=== PATIENT | male | born 1990 | race Caucasian/White ===

== ENCOUNTER 2020-07-03 17:20 | Observation (INO) | payer BC ==
[2020-07-03] MEDS ORDERED: Famotidine 20 MG/2 ML SDV IVPUSH ONE (17:32)
[2020-07-03] MEDS ORDERED: Aspirin 81 MG Tab.Chew CHEW ONE (17:32)
[2020-07-03] MEDS ORDERED: Ticagrelor 90 MG Tab PO ONE (17:32)
--- NOTE | 2020-07-03 17:32 | EDM.PDOC ---
ED HPI GENERAL MEDICAL PROBLEM - General Chief Complaint: Cardiovascular Problem Stated Complaint: A-fib Time Seen by Provider: 07/03/20 17:25 Source of Information: Reports: Patient, Old Records ([facility] EMR. No paper hospital chart available.), Other (Friend, [facility]. [place] EMR) History Limitations: Reports: No Limitations - History of Present Illness INITIAL COMMENTS - FREE TEXT/NARRATIVE: The patient was brought to the emergency room via private automobile by his friend for evaluation of heart flutter, which started when he woke up this morning at about 5 AM. He was able to go to work today and decided to follow-up at the [facility] in [place] for evaluation with no medications or treatment given in that facility. I did talk with his provider, CHRISTIANE Smith, by telephone prior to the patient being transferred to this facility. The patient denies any chest pain/pressure,dizziness, orthostasis, orthopnea, diaphoresis, paresthesias, recent decreased exercise tolerance, or any other anginal-type symptoms. No recent history of abdominal pain, heartburn, nausea, diarrhea, melena, gross hematochezia, or any food intolerance, including fatty foods, etc.. He denies any gross hematuria, colic, or other UTI symptoms. The patient also denies any recent fever, cough, wheezing, dyspnea, etc.. He denies any Hood pain or discomfort. Onset: Today, Sudden Onset Date: 07/03/20 Onset Time: 05:00 Duration: Constant, Getting Worse Location: Reports: Other (No pain) Severity: Moderate Improves with: Reports: None Worsens with: Reports: None Context: Reports: Other (As above). Denies: Sick Contact, Trauma Associated Symptoms: Denies: Confusion, Chest Pain, Cough, Diaphoresis, Fever/Chills, Headaches, Loss of Appetite, Malaise, Nausea/Vomiting, Rash, Seizure, Shortness of Breath, Syncope, Weakness Treatments NURSE SANE: Reports: Other (see below) (None) - Related Data Allergies Allergy/AdvReac Type Severity Reaction Status Date / Time No Known Allergies Allergy Verified 07/03/20 17:24 Home Meds: Home Meds Albuterol [Ventolin HFA] 2 puff INH Q4H PRN 07/03/20 [History] Fluticasone Propionate [Flonase] 1 spray NASBOTH DAILY 07/03/20 [History] Loratadine [Claritin] 10 mg PO DAILY 07/03/20 [History] Metoprolol Succinate [Toprol XL] 25 mg PO DAILY 07/03/20 [History] Multivitamin [Multi-Vitamin Daily] 1 each PO DAILY 07/03/20 [History] Omeprazole Magnesium [Prilosec Otc] 40 mg PO DAILY 07/03/20 [History] Past Medical History HEENT History: Reports: Allergic Rhinitis, Hard of Hearing, Impaired Vision. Denies: Cataract, Glaucoma, Macular Degeneration, Otitis Media, Retinal Detachment Other HEENT History: Patient does wear glasses. 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 Cardiovascular History: Reports: Arrhythmia, Other (See Below). Denies: Aneurysm, Blood Clots/VTE/DVT, CAD, Heart Murmur, High Cholesterol, Hypertension, UT, PVD, Syncope Other Cardiovascular History: Sinus tachycardia controlled with low-dose beta- golden therapy in the past. He does not know his cholesterol status. Respiratory History: Reports: Asthma. Denies: Bronchitis, Recurrent, COPD, Intubation, Previous, PE, Pneumonia, Recurrent, Pneumothorax, Sleep Apnea, SOB Gastrointestinal History: Reports: None, GERD. Denies: Bowel Obstruction, Celiac Disease, Cholelithiasis, Chronic Constipation, Chronic Diarrhea, Fecal Incontinence, Gastritis, GI Bleed, Inflammatory Bowel Disease, Irritable Bowel S yndrome, Jaundice, PUD Genitourinary History: Reports: None. Denies: Acute Renal Failure, BPH, Chronic Renal Insuffiency, Prostate Disorder, Renal Calculus, Retention, Urinary, STD, Urinary Incontinence, UTI, Recurrent Musculoskeletal History: Reports: Arthritis, Back Pain, Chronic, Neck Pain, Chronic. Denies: Amputation, Fracture, Gout, RA, SLE Neurological History: Reports: None. Denies: Cerebral Aneurysms, Concussion, CVA, Headaches, Chronic, Head Trauma, Migraines, MS, Neuropathy, Peripheral, Parkinson's, Seizure, TIA, Vertigo Psychiatric History: Reports: None. Denies: Abuse, Victim of, ADD, ADHD, Addiction, Anxiety, Depression, Psych Hospitalization(s), PTSD, Suicide Attempt, Suicidal Ideation Endocrine/Metabolic History: Reports: None, Obesity/BMI 30+. Denies: Diabetes, Type I, Diabetes, Type II, Diabetes Mellitus, Type 3c, Hypothyroidism, IDDM Hematologic History: Reports: None. Denies: Anemia, Blood Transfusion(s), Iron Deficiency Immunologic History: Reports: None. Denies: AIDS, HIV, SLE Oncologic (Cancer) History: Denies: Colon, Hodgkin's Lymphoma, Leukemia, Lymphoma, Malignant Melanoma, Non-Hodgkin's Lymphoma, Prostate, Squamous Cell Carcinoma Dermatologic History: Reports: Other (See Below). Denies: Eczema, Psoriasis Other Dermatologic History: Dry skin - Infectious Disease History Infectious Disease History: Reports: None, Other (See Below). Denies: C- Difficile, Chicken Pox, Measles, Meningitis, Mononucleosis, MRSA, Mumps, Novel Coronavirus, Pertussis (Whooping Cough), Rheumatic Fever, Rubella, Scarlet Fever, Shingles, TB, VRE Other Infectious Disease History: Patient is uncertain about his childhood illnesses. - Past Surgical History Head Surgeries/Procedures: Reports: None HEENT Surgical History: Reports: Oral Surgery, Other (See Below). Denies: Adenoidectomy, Cataract Surgery, Detached Retina, Eye Surgery, Laser Surgery, LASIK, Myringotomy w Tube(s), Naso-Sinus Surgery, Tonsillectomy Other HEENT Surgeries/Procedures: [place] teeth extraction x2 lowers at about age 14. Additional teeth extractions. Cardiovascular Surgical History: Reports: None. Denies: Varicose Respiratory Surgical History: Reports: None. Denies: Thoracentesis GI Surgical History: Reports: None. Denies: Appendectomy, Cholecystectomy, Colonoscopy, EGD, Hernia, Abdominal, Hernia, Inguinal, Hernia Repair/Other Male Surgical History: Reports: Circumcision, Vasectomy, Other (See Below) Other Male Surgeries/Procedures: Circumcision as an . Vasectomy on 11/15/2018. Endocrine Surgical History: Reports: None. Denies: Thyroid Biopsy Neurological Surgical History: Reports: None. Denies: C-Spine, Discectomy, Laminectomy, Lumbar Spine, Sacral Spine, Spinal Fusion, Thoracic Spine, Vertebroplasty Musculoskeletal Surgical History: Denies: Arthroscopic Procedure, Carpal Tunnel, Ganglion Cyst, Joint Replacement, ORIF, Shoulder Surgery Oncologic Surgical History: Reports: None Dermatological Surgical History: Reports: None - Past Imaging History Past Imaging History: Reports: None Social & Family History - Family History HEENT: Reports: None. Denies: Glaucoma, Macular Degeneration, Retinal Detachment Cardiac: Reports: Bypass, CAD, Heart Murmur, Hypertension, UT, Other (See Below). Denies: Afib, Aneurysm, Arrhythmia, Blood Clots/VTE/DVT, High Cholesterol, PVD/COD, Syncope Other Cardiac Family History: Maternal grandfather with fatal UT at age 42. Maternal grandmother with history of CABG with no UT in her 70s. Mother with unknown type of cardiac murmur. Hypertension in maternal grandmother. Respiratory: Reports: None. Denies: Asthma, COPD, PE, Pneumothorax, Sleep Apnea GI: Reports: None. Denies: Celiac Disease, Cholelithiasis, Colon Polyps, GERD, Inflammatory Bowel Disease, Irritable Bowel Syndrome, PUD : Reports: None. Denies: Renal Calculus, Renal Disease/Insufficiency OBGYN: Reports: None. Denies: Endometriosis, Recurrent Spontaneous Musculoskeletal: Reports: Arthritis, Osteoarthritis, Other (See Below). Denies: Gout, RA, SLE Other Musculoskeletal Family History: Mother with osteoarthritis. Neurological: Reports: None. Denies: Alzheimers Disease, Cerebral Aneurysms, CVA, Dementia, Migraines, MS, Seizure, TIA Psychiatric: Reports: Anxiety, Depression, Other (See Below). Denies: Abuse, Victim of, ADD, ADHD, Psych Hospitalization(s), PTSD, Suicide Attempt Other Psychiatric Family History: Mother with anxiety depression disorder. Endocrine/Metabolic: Reports: Diabetes, type II, Hypothyroidism, IDDM, Other (See Below). Denies: Diabetes, Gestational, Diabetes, Type I, Diabetes Mellitus, Type 3c Other Endocrine/Metabolic Family History: Maternal grandmother with IDDM. Maternal aunt with prediabetes. Mother with hypothyroidism. Obesity in mother and maternal aunt. Hematologic: Reports: None. Denies: Anemia, SLE Immunologic: Reports: None. Denies: AIDS, HIV, SLE Dermatologic: Reports: None. Denies: Eczema, Psoriasis Oncologic: Reports: Lung (Maternal grandmother with), Metastatic ( Maternal grandmother with fatal metastatic lung cancer in her 70s with previous history of tobacco use.). Denies: Cervix, Colon, Hodgkin's Lymphoma, Leukemia, Lymphoma, Non-Hodgkin's Lymphoma, Prostate, Skin - Tobacco Use Tobacco Use Status *Q: Current Every Day Tobacco User Tobacco Use Within Last Twelve Months: Cigarettes Years of Tobacco use: 13 Packs/Tins Daily: 0.5 Used Tobacco, but Quit: No Smoking Cessation Information Provided To Patient: Yes Second Hand Smoke Exposure: No Second Hand Smoke Education Provided: No - Caffeine Use Caffeine Use: Reports: Coffee (2 cups/day), Soda (1 soda per day). Denies: Energy Drinks, Tea - Alcohol Use Alcohol Use History: Yes Days Per Week of Alcohol Use: 7 Number of Drinks Per Day: 2 Number of Drinks Per Day Comment: Usually beer. No previous DWIs, problems with alcohol abuse, etc. Total Drinks Per Week: 14 Date of Last Drink: 07/01/20 Alcohol Use in Last Twelve Months: Yes - Recreational Drug Use Recreational Drug Use: No Drug Use in Last 12 Months: No Recreational Drug Type: Denies: Amphetamines (Speed), Cocaine, Heroin, Inhalants (Glues, Solvents, Aerosols), LSD (Acid), Marijuana/Hashish, Mescaline, Methamphetamine, Morphine, Oxycodone - Living Situation & Occupation Living situation: Reports: Single (No children), Alone Occupation: Employed ([employer]) ED ROS GENERAL - Review of Systems Review Of Systems: Comprehensive ROS is negative, except as noted in HPI. ED EXAM, GENERAL - Physical Exam Exam: See Below Exam Limited By: No Limitations General Appearance: Alert, WD/WN, No Apparent Distress Eye Exam: Bilateral Eye: EOMI, Normal Inspection (Patient is wearing glasses. No vertigo or nystagmus.), PERRL Ears: Normal External Exam, Normal Canal, Normal TMs, Other (Moderate bilateral hearing loss) Nose: Normal Inspection, Normal Mucosa, No Blood Throat/Mouth: Normal Inspection, Normal Lips, Normal Teeth, Normal Gums, Normal Oropharynx, Normal Voice, No Airway Compromise. No: Dysphagia, Inflammation, Perioral Cyanosis Head: Atraumatic, Normocephalic. No: Facial Swelling, Facial Tenderness, Sinus Tenderness Neck: Normal Inspection, Supple, Non-Tender, Full Range of Motion. No: Carotid Bruit, Lymphadenopathy (L), Lymphadenopathy (R), Thyromegaly Respiratory/Chest: No Respiratory Distress, Lungs Clear, Normal Breath Sounds, No Accessory Muscle Use, Chest Non-Tender. No: Pleural Rub, Retractions Cardiovascular: Normal Peripheral Pulses, No Edema, No Gallop, No JVD, No Murmur, No Rub, Tachycardia, Irregularly Irregular. No: Gallop/S3, Gallop/S4, Friction Rub Peripheral Pulses: 2+: Radial (L), Radial (R), Dorsalis Pedis (L), Dorsalis Pedis (R) GI/Abdominal: Normal Bowel Sounds, Soft, Non-Tender, No Organomegaly, No Distention, No Abnormal Bruit, No Mass, Pelvis Stable, Other (Obese). No: Guarding (Male) Exam: Deferred Rectal (Males) Exam: Deferred Back Exam: Normal Inspection, Full Range of Motion. No: CVA Tenderness (L), CVA Tenderness (R), Muscle Spasm Extremities: Normal Inspection, Normal Range of Motion, Non-Tender, Normal Capillary Refill, No Pedal Edema Neurological: Alert, Oriented, CN II-XII Intact, Normal Cognition, Normal Gait, Normal Reflexes (Negative Homans), No Motor/Sensory Deficits, Other (No clinical orthostasis) Psychiatric: Normal Affect, Normal Mood Skin Exam: Warm, Dry, Intact, Normal Color, No Rash. No: Diaphoretic, Ecchymosis, Petechiae, Wound/Incision Lymphatic: No Adenopathy #1 Interpretation EKG Date: 07/03/20 Time: 17:47 Rhythm: A-Flutter (And atrial fibrillation) Rate (Beats/Min): 92 [place]: Normal (Left) P-Wave: Variable QRS: Normal (0.08 seconds) ST-T: Normal QT: Normal [place]/PQ Interval: Poor R wave progression in the anterior leads. Comparison: Change From Previous EKG (Resolved tachycardia from previous EKG at [facility] earlier this afternoon at 5:20 PM.) EKG Interpretation Comments: 1. Atrial fibrillation/flutter with recent rapid ventricular response 2. No acute ischemic changes Course - Vital Signs Last Recorded V/S: Last Vital Signs Temp 36.6 C 07/03/20 17:20 Pulse 87 07/03/20 18:50 Resp 24 H 07/03/20 18:50 BP 122/85 07/03/20 18:50 Pulse Ox 98 07/03/20 18:50 Vital Signs - 24 hr 07/03/20 07/03/20 07/03/20 17:20 17:35 17:50 Temperature [ 36.6 C Temporal] Pulse, Peripheral Pulse, 120 H 120 H 97 Peripheral [ Apical] Respiratory 22 H 23 H 25 H Rate Blood Pressure Blood Pressure 131/75 120/79 119/100 H [Right Upper Arm] O2 Sat by Pulse 97 98 98 Oximetry 07/03/20 07/03/20 07/03/20 17:55 18:05 18:20 Temperature [ Temporal] Pulse, 97 Peripheral Pulse, 96 95 Peripheral [ Apical] Respiratory 19 23 H Rate Blood Pressure 119/100 H Blood Pressure 116/71 124/67 [Right Upper Arm] O2 Sat by Pulse 96 97 Oximetry 07/03/20 18:35 Temperature [ Temporal] Pulse, Peripheral Pulse, 85 Peripheral [ Apical] Respiratory 22 H Rate Blood Pressure Blood Pressure 125/71 [Right Upper Arm] O2 Sat by Pulse 98 Oximetry - Orders/Labs/Meds Orders: Active Orders 24 hr Category Date Time Status Cardiac Monitoring [RC] . DIRECTED Care 07/03/20 17:33 Active EKG Documentation Completion [RC] ASDIRECTED Care 07/03/20 17:33 Active Oxygen Therapy, ED [RC] PRN Care 07/03/20 17:33 Active Peripheral IV Care [RC] . DIRECTED Care 07/03/20 17:33 Active Pulse Oximetry [RC] CONTINUOUS Care 07/03/20 17:33 Active Up With Assistance [RC] PFP Care 07/03/20 17:33 Active Vital Signs [RC] PFP Care 07/03/20 17:33 Active Nothing per Oral Now Diet [DIET] Diet 07/03/20 Breakfast Active Chest 1V Frontal [CR] Stat Exams 07/03/20 17:33 Taken CORONAVIRUS COVID-19 GARRET [MOLEC] Stat Lab 07/03/20 18:10 Received CORONAVIRUS COVID-19 GARRET [MOLEC] Stat Lab 07/03/20 18:10 Received CORONAVIRUS COVID-19 GARRET [MOLEC] Stat Lab 07/03/20 18:10 Stop Req Sodium Chloride 0.9% [Saline Flush] Med 07/03/20 17:32 Active 10 ml FLUSH ASDIRECTED PRN Obtain Past Medical Record [OM.PC] Urgent Oth 07/03/20 17:33 Active Peripheral IV Insertion Adult [OM.PC] Stat Oth 07/03/20 17:33 Ordered Resuscitation Status Stat Resus Stat 07/03/20 17:32 Ordered Medication Orders Sodium Chloride (Saline Flush) 10 ml FLUSH ASDIRECTED PRN PRN Reason: Keep Vein Open Labs: Laboratory Tests 07/03/20 07/03/20 07/03/20 Range/Units 17:30 17:30 17:30 WBC 12.2 H (4.0-10.2) K/uL RBC 5.58 H (4.33-5.41) M/uL Hgb 16.3 (13.1-16.8) g/dL Hct 48.8 (39.0-49.0) % MCV 87.5 (84.0-98.0) fL MCH 29.2 (28.2-33.3) pg MCHC 33.4 (31.7-36.0) g/dL RDW 13.5 (11.2-14.1) % Plt Count 286 (150-350) K/uL Neut % (Auto) 53.3 (45.0-80.0) % Lymph % (Auto) 32.3 (10.0-50.0) % [place] % (Auto) 8.7 (2.0-14.0) % Eos % (Auto) 5.3 H (0.0-5.0) % Baso % (Auto) 0.4 (0.0-2.0) % Neut # (Auto) 6.48 (1.40-7.00) K/uL Lymph # (Auto) 3.94 H (0.50-3.50) K/uL [place] # (Auto) 1.06 H (0.00-1.00) K/uL Eos # (Auto) 0.65 H (0.00-0.50) K/uL Baso # (Auto) 0.05 (0.00-0.20) K/uL PT 9.4 L (9.5-12.0) SEC INR 0.9 APTT 26.9 (24.5-32.8) SEC D-Dimer, Quantitative < 100 (0-400) ng/mL Sodium (136-145) mmol/L Potassium (3.5-5.1) mmol/L Chloride (98-107) mmol/L Carbon Dioxide (21.0-32.0) mmol/L BUN (7-18) mg/dL Creatinine (0.51-1.17) mg/dL Est Cr Clr Drug Dosing Estimated GFR (MDRD) mL/min Glucose (70-99) mg/dL Lactic Acid (0.4-2.0) mmol/L Uric Acid (2.6-7.2) mg/dL Calcium (8.5-10.1) mg/dL Magnesium (1.8-2.4) mg/dL Total Bilirubin (0.2-1.0) mg/dL AST (15-37) U/L ALT (12-78) U/L Alkaline Phosphatase (46-116) IU/L Creatine Kinase (26-308) U/L Creatine Kinase Index (0.0-2.5) % CK-MB (CK-2) (0.00-3.60) ng/mL Troponin I (0.000-0.056) ng/mL NT-Pro-B Natriuret Pep (0-125) pg/mL Total Protein (6.4-8.2) g/dL Albumin (3.4-5.0) g/dL TSH, Ultra Sensitive (0.358-3.740) mIU/mL SARS-CoV-2 Ag (Rapid) (NEGATIVE) 07/03/20 07/03/20 07/03/20 Range/Units 17:30 17:30 18:10 WBC (4.0-10.2) K/uL RBC (4.33-5.41) M/uL Hgb (13.1-16.8) g/dL Hct (39.0-49.0) % MCV (84.0-98.0) fL MCH (28.2-33.3) pg MCHC (31.7-36.0) g/dL RDW (11.2-14.1) % Plt Count (150-350) K/uL Neut % (Auto) (45.0-80.0) % Lymph % (Auto) (10.0-50.0) % [place] % (Auto) (2.0-14.0) % Eos % (Auto) (0.0-5.0) % Baso % (Auto) (0.0-2.0) % Neut # (Auto) (1.40-7.00) K/uL Lymph # (Auto) (0.50-3.50) K/uL [place] # (Auto) (0.00-1.00) K/uL Eos # (Auto) (0.00-0.50) K/uL Baso # (Auto) (0.00-0.20) K/uL PT (9.5-12.0) SEC INR APTT (24.5-32.8) SEC D-Dimer, Quantitative (0-400) ng/mL Sodium 141 (136-145) mmol/L Potassium 4.0 (3.5-5.1) mmol/L Chloride 104 (98-107) mmol/L Carbon Dioxide 27.3 (21.0-32.0) mmol/L BUN 18 (7-18) mg/dL Creatinine 0.96 (0.51-1.17) mg/dL Est Cr Clr Drug Dosing TNP Estimated GFR (MDRD) > 60 mL/min Glucose 94 (70-99) mg/dL Lactic Acid 1.2 (0.4-2.0) mmol/L Uric Acid 5.3 (2.6-7.2) mg/dL Calcium 9.3 (8.5-10.1) mg/dL Magnesium 1.8 (1.8-2.4) mg/dL Total Bilirubin 0.2 (0.2-1.0) mg/dL AST 26 (15-37) U/L ALT 53 (12-78) U/L Alkaline Phosphatase 116 (46-116) IU/L Creatine Kinase 235 (26-308) U/L Creatine Kinase Index 0.5 (0.0-2.5) % CK-MB (CK-2) 1.20 (0.00-3.60) ng/mL Troponin I 0.000 (0.000-0.056) ng/mL NT-Pro-B Natriuret Pep 478 H (0-125) pg/mL Total Protein 8.0 (6.4-8.2) g/dL Albumin 4.2 (3.4-5.0) g/dL TSH, Ultra Sensitive 2.785 (0.358-3.740) mIU/mL SARS-CoV-2 Ag (Rapid) Negative (NEGATIVE) Meds: Medications Generic Name Dose Route Start Last Admin Trade Name Freq PRN Reason Stop Dose Admin Sodium Chloride 10 ml 07/03/20 17:32 Saline Flush FLUSH ASDIRECTED PRN Keep Vein Open Discontinued Medications Generic Name Dose Route Start Last Admin Trade Name Freq PRN Reason Stop Dose Admin Aspirin 324 mg 07/03/20 17:32 07/03/20 17:38 Aspirin CHEW 07/03/20 17:33 324 mg ONETIME ONE Administration Diltiazem HCl 20 mg 07/03/20 17:34 07/03/20 17:40 Diltiazem IVPUSH 07/03/20 17:35 10 mg ONETIME ONE Administration Diltiazem HCl 120 mg 07/03/20 17:51 07/03/20 17:55 Cardizem Cd PO 07/03/20 17:52 120 mg ONETIME ONE Administration Famotidine 40 mg 07/03/20 17:32 07/03/20 17:51 Pepcid IVPUSH 07/03/20 17:33 40 mg ONETIME ONE Administration Metoprolol Tartrate 25 mg 07/03/20 18:36 07/03/20 18:48 Lopressor PO 07/03/20 18:37 25 mg ONETIME ONE Administration Ticagrelor 180 mg 07/03/20 17:32 07/03/20 17:38 Brilinta PO 07/03/20 17:33 180 mg ONETIME ONE Administration - Radiology Interpretation Free Text/Narrative:: 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 No PVCs or other cardiac arrhythmia. Improved tachycardia with heart rate in the 90s to 100s after medical therapy as below. Chest x-ray, portable, shows evidence of mild to moderate pulmonary obstructive disease with no cardiomegaly, CHF, pulmonary infiltrates, pneumothorax, etc. Departure - Departure Time of Disposition: 19:40 Disposition: Refer to Observation Condition: Good Clinical Impression: Atrial flutter with rapid ventricular response, History of sinus tachycardia, Peptic reflux disease, Obesity (BMI 30-39.9), Leukocytosis Asthma Qualifiers: Asthma severity: mild Asthma persistence: intermittent Asthma complication type: uncomplicated Qualified Code(s): J45.20 - Mild intermittent asthma, uncomplicated Osteoarthritis Qualifiers: Osteoarthritis location: multiple joints Osteoarthritis type: primary Qualified Code(s): M89.49 - Other hypertrophic osteoarthropathy, multiple sites Sepsis Event Note (ED) - Focused Exam Vital Signs: Vital Signs Temp Pulse Pulse Resp BP BP Pulse Ox 07/03/20 18:35 85 22 H 125/71 98 07/03/20 18:20 95 23 H 124/67 97 07/03/20 18:05 96 19 116/71 96 07/03/20 17:55 97 119/100 H 07/03/20 17:50 97 25 H 119/100 H 98 07/03/20 17:35 120 H 23 H 120/79 98 07/03/20 17:20 36.6 C 120 H 22 H 131/75 97 - Problem List & Annotations (1) Atrial flutter with rapid ventricular response SNOMED Code(s): 2854472, 6868951 Code(s): I48.92 - UNSPECIFIED ATRIAL FLUTTER Status: Acute Priority: High Current Visit: No Onset Date: 07/03/20 Annotation/Comment:: Persistent atrial fibrillation/flutter at time of admission, however no tachycardia with heart rate in the 70s to 80s after aggressive treatment as above. No chest pain or anginal type symptoms with chest pain protocol not initiated in the emergency room, although the patient was given ASA and Brilinta as a preventative measure. Secondary to new onset atrial fibrillation no indication for high-dose Lovenox or anticoagulation therapy at this time. Continue medication adjustments during this hospitalization with echocardiogram probably on an outpatient basis after discharge. Further cardiac work-up depending on his clinical course, including recommended probable Cardiolite stress test secondary to his multiple cardiac risk factors as above. Cardiology consultation depending on his clinical course. No excessive caffeine use or OTC cold preparations recently. TSH was normal. His friend, who brought him here to the emergency room, was provided a [email or web address] work excuse. (2) History of sinus tachycardia SNOMED Code(s): 525978925 Code(s): Z86.79 - PERSONAL HISTORY OF OTHER DISEASES OF THE CIRCULATORY SYSTEM Status: Chronic Priority: Medium Current Visit: No Annotation/Comment:: Previous history of sinus tachycardia currently treated with low-dose Toprol-XL. Further medication adjustments as above. No previous cardiac work-up. (3) Asthma SNOMED Code(s): 271060556 Code(s): J45.909 - UNSPECIFIED ASTHMA, UNCOMPLICATED Status: Chronic Priority: Medium Current Visit: No Annotation/Comment:: No recent fever or bronchitic type symptoms. Stable by history. Patient did not receive an inf luenza booster this season. No Covid infection or immunizations to this point. Qualifiers: Asthma severity: mild Asthma persistence: intermittent Asthma complication type: uncomplicated Qualified Code(s): J45.20 - Mild intermittent asthma, uncomplicated (4) Obesity (BMI 30-39.9) SNOMED Code(s): 834687677, 722604398 Code(s): E66.9 - OBESITY, UNSPECIFIED Status: Chronic Priority: Medium Current Visit: No Annotation/Comment:: Glycosylated hemoglobin and lipid panel in the a.m. Weight loss in moderation advisable. Dietary information to be provided at discharge. (5) Osteoarthritis SNOMED Code(s): 411071991 Code(s): M19.90 - UNSPECIFIED OSTEOARTHRITIS, UNSPECIFIED SITE Status: Chronic Priority: Medium Current Visit: No Annotation/Comment:: Stable by history Qualifiers: Osteoarthritis location: multiple joints Osteoarthritis type: primary Qualified Code(s): M89.49 - Other hypertrophic osteoarthropathy, multiple sites (6) Peptic reflux disease SNOMED Code(s): 242884965 Code(s): K21.9 - GASTRO-ESOPHAGEAL REFLUX DISEASE WITHOUT ESOPHAGITIS Status: Chronic Priority: Medium Current Visit: No Annotation/Comment:: Stable by history with high-dose IV Pepcid given as GI prophylaxis. No evidence of acute GI bleed, etc. (7) Leukocytosis SNOMED Code(s): 413179093, 849922389 Code(s): D72.829 - ELEVATED WHITE BLOOD CELL COUNT, UNSPECIFIED Status: Acute Priority: Medium Current Visit: Yes Onset Date: ~07/03/20 Annotation/Comment:: Likely secondary to stress infection. UA collected. - Problem List Review Problem List Initiated/Reviewed/Updated: Yes - My Orders Last 24 Hours: My Active Orders 07/03/20 Breakfast Nothing per Oral Now Diet [DIET] 07/03/20 17:32 Sodium Chloride 0.9% [Saline Flush] 10 ml FLUSH ASDIRECTED PRN Resuscitation Status Stat 07/03/20 17:33 Cardiac Monitoring [RC] . DIRECTED EKG Documentation Completion [RC] ASDIRECTED Oxygen Therapy, ED [RC] PRN Peripheral IV Care [RC] . DIRECTED Pulse Oximetry [RC] CONTINUOUS Up With Assistance [RC] PFP Vital Signs [RC] PFP Chest 1V Frontal [CR] Stat Obtain Past Medical Record [OM.PC] Urgent Peripheral IV Insertion Adult [OM.PC] Stat 07/03/20 18:10 CORONAVIRUS COVID-19 G[facility]RET [MOLEC] Stat CORONAVIRUS COVID-19 G[facility]RET [MOLEC] Stat CORONAVIRUS COVID-19 G[facility]RET [MOLEC] Stat - Assessment/Plan Admission H&P: Please use this note as an admission H&P Last 24 Hours: My Active Orders 07/03/20 Breakfast Nothing per Oral Now Diet [DIET] 07/03/20 17:32 Sodium Chloride 0.9% [Saline Flush] 10 ml FLUSH ASDIRECTED PRN Resuscitation Status Stat 07/03/20 17:33 Cardiac Monitoring [RC] . DIRECTED EKG Documentation Completion [RC] ASDIRECTED Oxygen Therapy, ED [RC] PRN Peripheral IV Care [RC] . DIRECTED Pulse Oximetry [RC] CONTINUOUS Up With Assistance [RC] PFP Vital Signs [RC] PFP Chest 1V Frontal [CR] Stat Obtain Past Medical Record [OM.PC] Urgent Peripheral IV Insertion Adult [OM.PC] Stat 07/03/20 18:10 CORONAVIRUS COVID-19 GARRET [MOLEC] Stat CORONAVIRUS COVID-19 GARRET [MOLEC] Stat CORONAVIRUS COVID-19 GARRET [MOLEC] Stat Assessment:: As above Plan: As above. Extensive precautions were given to the patient, who is in agreement with the treatment plan. The patient's condition is stable enough for observation status and general supervision.
[2020-07-03] MEDS ORDERED: Diltiazem 25 MG/5 ML SDV IVPUSH ONE (17:34)
[2020-07-03] MEDS ORDERED: Diltiazem 120 MG Cap.CD PO ONE (17:51)
[2020-07-03 18:12] LABS: PTT,PARTIAL THROMBOPLSTIN TIME 26.9 SEC (24.5-32.8)
[2020-07-03 18:22] LABS: CHLORIDE,CL 104 mmol/L (98-107); SODIUM,NA 141 mmol/L (136-145)
[2020-07-03] MEDS ORDERED: Metoprolol Tartrate 50 MG Tab PO ONE (18:36)
[2020-07-03] MEDS ORDERED: Albuterol 6.7 GM Inhaler INH PRN (19:56)
[2020-07-03] MEDS ORDERED: Acetaminophen 325 MG Tab PO PRN (20:05)
[2020-07-03] MEDS ORDERED: Temazepam 15 MG Cap PO PRN (20:05)
[2020-07-03] MEDS ORDERED: Sodium Chloride 0.9% 10 ML Syringe FLUSH PRN (20:05)
[2020-07-03] MEDS ORDERED: Potassium Chloride 20 MEQ Tab.ER PO SCH (20:15)
[2020-07-03] MEDS ORDERED: Furosemide 40 MG/4 ML VIAL IVPUSH SCH (20:15)
[2020-07-03] MEDS: Enoxaparin 40 MG/0.4 ML Syringe SUBCUT SCH (22:55)
[2020-07-04] MEDS: Loratadine 10 MG Tab PO SCH (07:18)
[2020-07-04] MEDS: Omeprazole 20 MG Cap.CR PO SCH (07:18)
[2020-07-04] MEDS: Metoprolol Succinate 25 MG Tab.ER PO SCH ×2 (07:18→17:26)
[2020-07-04] MEDS: Fluticasone Propionate Nasal Spray 16 GM Bottle NASBOTH SCH (07:20)
[2020-07-04 07:53] LABS: HEMOGLOBIN A1C 5.5 % (4.3-5.7)
[2020-07-04 08:18] LABS: CHLORIDE,CL 104 mmol/L (98-107); SODIUM,NA 139 mmol/L (136-145)
[2020-07-04] MEDS: Potassium Chloride 20 MEQ Tab.ER PO SCH (08:24)
[2020-07-04] MEDS: Furosemide 20 MG/2 ML VIAL IVPUSH SCH ×2 (08:24→17:36)
[2020-07-04] MEDS ORDERED: Digoxin 500 MCG/2 ML Amp IVPUSH ONE ×2 (08:39→18:00)
[2020-07-04] MEDS: Sodium Chloride 0.9% 10 ML Syringe FLUSH PRN ×2 (09:49→19:30)
--- NOTE | 2020-07-04 10:33 | PCM.PN ---
- General Info Date of Service: 07/04/20 Admission Dx/Problem (Free Text): 1. Atrial fibrillation with rapid ventricular response 2. CHF Functional Status: Reports: Pain Controlled, Ambulating, Urinating, Incentive Spirometry. Denies: Tolerating Diet (N.p.o. however wants breakfast), New Symp toms Pain Score: 0 - Review of Systems General: Reports: No Symptoms. Denies: Fever, Weakness, Fatigue, Malaise, Night Sweats, Appetite HEENT: Reports: No Symptoms. Denies: Eye Pain, Headaches, Post Nasal Drip, Sinus Congestion, Sore Throat, Rhinitis, Visual Changes Pulmonary: Reports: No Symptoms. Denies: Shortness of Breath, Pleuritic Chest Pain, Cough, Sputum, Hemoptysis, Wheezing Cardiovascular: Reports: No Symptoms. Denies: Chest Pain, Palpitations, Dyspnea on Exertion, Orthopnea, PND, Edema, Lightheadedness Gastrointestinal: Reports: No Symptoms, Other (Earlier bowel movement this morning, which was normal.). Denies: Abdominal Pain, Constipation, Decreased Appetite, Diarrhea, Difficulty Swallowing, Hematochezia, Melena, Nausea, Vomiting Genitourinary: Reports: No Symptoms. Denies: Dysuria, Frequency, Burning, Urgency, Incontinence, Hematuria, Retention, Flank Pain Musculoskeletal: Reports: No Symptoms. Denies: Neck Pain, Shoulder Pain, Arm Pain, Back Pain, Leg Pain Skin: Reports: No Symptoms. Denies: Diaphoresis, Bruising Neurological: Reports: No Symptoms. Denies: Numbness, Paresthesia, Syncope, Tingling, Difficulty Walking, Weakness Psychiatric: Reports: No Symptoms. Denies: Confusion, Depression, Anxiety, Agitation, Cravings, Hallucinations - Patient Data Vitals - Most Recent: Last Vital Signs Temp 36.4 C 07/04/20 09:16 Pulse 83 07/04/20 09:45 Resp 16 07/04/20 09:16 BP 99/64 07/04/20 09:16 Pulse Ox 98 07/04/20 09:16 Weight - Most Recent: 127.051 kg I&O - Last 24 Hours: Intake & Output 07/03/20 07/04/20 07/04/20 22:59 06:59 14:59 Intake Total 700 600 Output Total 550 Balance 700 -550 600 Imaging Impressions - Last 24 Hours: oncology consultant shows stable atrial fibrillation with heart rate in the 80s with no other ectopy or arrhythmia. Lab Results Last 24 Hours: Laboratory Results - last 24 hr 07/03/20 07/03/20 07/03/20 Range/Units 17:30 17:30 17:30 WBC 12.2 H (4.0-10.2) K/uL RBC 5.58 H (4.33-5.41) M/uL Hgb 16.3 (13.1-16.8) g/dL Hct 48.8 (39.0-49.0) % MCV 87.5 (84.0-98.0) fL MCH 29.2 (28.2-33.3) pg MCHC 33.4 (31.7-36.0) g/dL RDW 13.5 (11.2-14.1) % Plt Count 286 (150-350) K/uL Neut % (Auto) 53.3 (45.0-80.0) % Lymph % (Auto) 32.3 (10.0-50.0) % [place] % (Auto) 8.7 (2.0-14.0) % Eos % (Auto) 5.3 H (0.0-5.0) % Baso % (Auto) 0.4 (0.0-2.0) % Neut # (Auto) 6.48 (1.40-7.00) K/uL Lymph # (Auto) 3.94 H (0.50-3.50) K/uL [place] # (Auto) 1.06 H (0.00-1.00) K/uL Eos # (Auto) 0.65 H (0.00-0.50) K/uL Baso # (Auto) 0.05 (0.00-0.20) K/uL PT 9.4 L (9.5-12.0) SEC INR 0.9 APTT 26.9 (24.5-32.8) SEC D-Dimer, Quantitative < 100 (0-400) ng/mL Sodium (136-145) mmol/L Potassium (3.5-5.1) mmol/L Chloride (98-107) mmol/L Carbon Dioxide (21.0-32.0) mmol/L BUN (7-18) mg/dL Creatinine (0.51-1.17) mg/dL Est Cr Clr Drug Dosing Estimated GFR (MDRD) mL/min Glucose (70-99) mg/dL Hemoglobin A1c (4.3-5.7) % Lactic Acid (0.4-2.0) mmol/L Uric Acid (2.6-7.2) mg/dL Calcium (8.5-10.1) mg/dL Magnesium (1.8-2.4) mg/dL Total Bilirubin (0.2-1.0) mg/dL AST (15-37) U/L ALT (12-78) U/L Alkaline Phosphatase (46-116) IU/L Creatine Kinase (26-308) U/L Creatine Kinase Index (0.0-2.5) % CK-MB (CK-2) (0.00-3.60) ng/mL Troponin I (0.000-0.056) ng/mL NT-Pro-B Natriuret Pep (0-125) pg/mL Total Protein (6.4-8.2) g/dL Albumin (3.4-5.0) g/dL Triglycerides (30-150) mg/dL Cholesterol (100-200) mg/dL LDL Cholesterol, Calc (0-100) mg/dL HDL Cholesterol (40-60) mg/dL TSH, Ultra Sensitive (0.358-3.740) mIU/mL Specimen Type Urine Color Urine Appearance Urine pH (5.0-9.0) Ur Specific [place] (1.005-1.030) Urine Protein (NEGATIVE) mg/dL Urine Glucose (UA) (NEGATIVE) mg/dL Urine Ketones (NEGATIVE) mg/dL Urine Occult Blood (NEGATIVE) Urine Nitrite (NEGATIVE) Urine Bilirubin (NEGATIVE) Urine Urobilinogen (0.2-1.0) E.U./dL Ur Leukocyte Esterase (NEGATIVE) Urine RBC /HPF Urine WBC /HPF Urine Bacteria (NONE TO FEW) /HPF SARS-CoV-2 RNA (GARRET) (NEGATIVE) SARS-CoV-2 Ag (Rapid) (NEGATIVE) 07/03/20 07/03/20 07/03/20 Range/Units 17:30 17:30 18:10 WBC (4.0-10.2) K/uL RBC (4.33-5.41) M/uL Hgb (13.1-16.8) g/dL Hct (39.0-49.0) % MCV (84.0-98.0) fL MCH (28.2-33.3) pg MCHC (31.7-36.0) g/dL RDW (11.2-14.1) % Plt Count (150-350) K/uL Neut % (Auto) (45.0-80.0) % Lymph % (Auto) (10.0-50.0) % [place] % (Auto) (2.0-14.0) % Eos % (Auto) (0.0-5.0) % Baso % (Auto) (0.0-2.0) % Neut # (Auto) (1.40-7.00) K/uL Lymph # (Auto) (0.50-3.50) K/uL [place] # (Auto) (0.00-1.00) K/uL Eos # (Auto) (0.00-0.50) K/uL Baso # (Auto) (0.00-0.20) K/uL PT (9.5-12.0) SEC INR APTT (24.5-32.8) SEC D-Dimer, Quantitative (0-400) ng/mL Sodium 141 (136-145) mmol/L Potassium 4.0 (3.5-5.1) mmol/L Chloride 104 (98-107) mmol/L Carbon Dioxide 27.3 (21.0-32.0) mmol/L BUN 18 (7-18) mg/dL Creatinine 0.96 (0.51-1.17) mg/dL Est Cr Clr Drug Dosing TNP Estimated GFR (MDRD) > 60 mL/min Glucose 94 (70-99) mg/dL Hemoglobin A1c (4.3-5.7) % Lactic Acid 1.2 (0.4-2.0) mmol/L Uric Acid 5.3 (2.6-7.2) mg/dL Calcium 9.3 (8.5-10.1) mg/dL Magnesium 1.8 (1.8-2.4) mg/dL Total Bilirubin 0.2 (0.2-1.0) mg/dL AST 26 (15-37) U/L ALT 53 (12-78) U/L Alkaline Phosphatase 116 (46-116) IU/L Creatine Kinase 235 (26-308) U/L Creatine Kinase Index 0.5 (0.0-2.5) % CK-MB (CK-2) 1.20 (0.00-3.60) ng/mL Troponin I 0.000 (0.000-0.056) ng/mL NT-Pro-B Natriuret Pep 478 H (0-125) pg/mL Total Protein 8.0 (6.4-8.2) g/dL Albumin 4.2 (3.4-5.0) g/dL Triglycerides (30-150) mg/dL Cholesterol (100-200) mg/dL LDL Cholesterol, Calc (0-100) mg/dL HDL Cholesterol (40-60) mg/dL TSH, Ultra Sensitive 2.785 (0.358-3.740) mIU/mL Specimen Type Urine Color Urine Appearance Urine pH (5.0-9.0) Ur Specific [place] (1.005-1.030) Urine Protein (NEGATIVE) mg/dL Urine Glucose (UA) (NEGATIVE) mg/dL Urine Ketones (NEGATIVE) mg/dL Urine Occult Blood (NEGATIVE) Urine Nitrite (NEGATIVE) Urine Bilirubin (NEGATIVE) Urine Urobilinogen (0.2-1.0) E.U./dL Ur Leukocyte Esterase (NEGATIVE) Urine RBC /HPF Urine WBC /HPF Urine Bacteria (NONE TO FEW) /HPF SARS-CoV-2 RNA (GARRET) (NEGATIVE) SARS-CoV-2 Ag (Rapid) Negative (NEGATIVE) 07/03/20 07/03/20 07/04/20 Range/Units 18:10 19:45 07:36 WBC 9.4 (4.0-10.2) K/uL RBC 5.66 H (4.33-5.41) M/uL Hgb 16.5 (13.1-16.8) g/dL Hct 49.6 H (39.0-49.0) % MCV 87.6 (84.0-98.0) fL MCH 29.2 (28.2-33.3) pg MCHC 33.3 (31.7-36.0) g/dL RDW 13.7 (11.2-14.1) % Plt Count 266 (150-350) K/uL Neut % (Auto) 43.6 L (45.0-80.0) % Lymph % (Auto) 39.1 (10.0-50.0) % [place] % (Auto) 9.7 (2.0-14.0) % Eos % (Auto) 7.1 H (0.0-5.0) % Baso % (Auto) 0.5 (0.0-2.0) % Neut # (Auto) 4.09 (1.40-7.00) K/uL Lymph # (Auto) 3.67 H (0.50-3.50) K/uL [place] # (Auto) 0.91 (0.00-1.00) K/uL Eos # (Auto) 0.67 H (0.00-0.50) K/uL Baso # (Auto) 0.05 (0.00-0.20) K/uL PT (9.5-12.0) SEC INR APTT (24.5-32.8) SEC D-Dimer, Quantitative (0-400) ng/mL Sodium (136-145) mmol/L Potassium (3.5-5.1) mmol/L Chloride (98-107) mmol/L Carbon Dioxide (21.0-32.0) mmol/L BUN (7-18) mg/dL Creatinine (0.51-1.17) mg/dL Est Cr Clr Drug Dosing Estimated GFR (MDRD) mL/min Glucose (70-99) mg/dL Hemoglobin A1c (4.3-5.7) % Lactic Acid (0.4-2.0) mmol/L Uric Acid (2.6-7.2) mg/dL Calcium (8.5-10.1) mg/dL Magnesium (1.8-2.4) mg/dL Total Bilirubin (0.2-1.0) mg/dL AST (15-37) U/L ALT (12-78) U/L Alkaline Phosphatase (46-116) IU/L Creatine Kinase (26-308) U/L Creatine Kinase Index (0.0-2.5) % CK-MB (CK-2) (0.00-3.60) ng/mL Troponin I (0.000-0.056) ng/mL NT-Pro-B Natriuret Pep (0-125) pg/mL Total Protein (6.4-8.2) g/dL Albumin (3.4-5.0) g/dL Triglycerides (30-150) mg/dL Cholesterol (100-200) mg/dL LDL Cholesterol, Calc (0-100) mg/dL HDL Cholesterol (40-60) mg/dL TSH, Ultra Sensitive (0.358-3.740) mIU/mL Specimen Type Urincc Urine Color Yellow Urine Appearance Clear Urine pH 6.5 (5.0-9.0) Ur Specific [place] 1.015 (1.005-1.030) Urine Protein Negative (NEGATIVE) mg/dL Urine Glucose (UA) Negative (NEGATIVE) mg/dL Urine Ketones Negative (NEGATIVE) mg/dL Urine Occult Blood Negative (NEGATIVE) Urine Nitrite Negative (NEGATIVE) Urine Bilirubin Negative (NEGATIVE) Urine Urobilinogen 0.2 (0.2-1.0) E.U./dL Ur Leukocyte Esterase Negative (NEGATIVE) Urine RBC 0-5 /HPF Urine WBC Not seen /HPF Urine Bacteria Not seen (NONE TO FEW) /HPF SARS-CoV-2 RNA (GARRET) Negative (NEGATIVE) SARS-CoV-2 Ag (Rapid) (NEGATIVE) 07/04/20 07/04/20 Range/Units 07:36 07:36 WBC (4.0-10.2) K/uL RBC (4.33-5.41) M/uL Hgb (13.1-16.8) g/dL Hct (39.0-49.0) % MCV (84.0-98.0) fL MCH (28.2-33.3) pg MCHC (31.7-36.0) g/dL RDW (11.2-14.1) % Plt Count (150-350) K/uL Neut % (Auto) (45.0-80.0) % Lymph % (Auto) (10.0-50.0) % [place] % (Auto) (2.0-14.0) % Eos % (Auto) (0.0-5.0) % Baso % (Auto) (0.0-2.0) % Neut # (Auto) (1.40-7.00) K/uL Lymph # (Auto) (0.50-3.50) K/uL [place] # (Auto) (0.00-1.00) K/uL Eos # (Auto) (0.00-0.50) K/uL Baso # (Auto) (0.00-0.20) K/uL PT (9.5-12.0) SEC INR APTT (24.5-32.8) SEC D-Dimer, Quantitative (0-400) ng/mL Sodium 139 (136-145) mmol/L Potassium 4.2 (3.5-5.1) mmol/L Chloride 104 (98-107) mmol/L Carbon Dioxide 28.0 (21.0-32.0) mmol/L BUN 15 (7-18) mg/dL Creatinine 0.93 (0.51-1.17) mg/dL Est Cr Clr Drug Dosing 122.58 Estimated GFR (MDRD) > 60 mL/min Glucose 103 H (70-99) mg/dL Hemoglobin A1c 5.5 (4.3-5.7) % Lactic Acid (0.4-2.0) mmol/L Uric Acid (2.6-7.2) mg/dL Calcium 8.8 (8.5-10.1) mg/dL Magnesium (1.8-2.4) mg/dL Total Bilirubin 0.7 (0.2-1.0) mg/dL AST 26 (15-37) U/L ALT 53 (12-78) U/L Alkaline Phosphatase 107 (46-116) IU/L Creatine Kinase 195 (26-308) U/L Creatine Kinase Index 0.4 (0.0-2.5) % CK-MB (CK-2) 0.70 (0.00-3.60) ng/mL Troponin I 0.000 (0.000-0.056) ng/mL NT-Pro-B Natriuret Pep 455 H (0-125) pg/mL Total Protein 7.2 (6.4-8.2) g/dL Albumin 3.5 (3.4-5.0) g/dL Triglycerides 167 H (30-150) mg/dL Cholesterol 195 (100-200) mg/dL LDL Cholesterol, Calc 125 H (0-100) mg/dL HDL Cholesterol 37 L (40-60) mg/dL TSH, Ultra Sensitive (0.358-3.740) mIU/mL Specimen Type Urine Color Urine Appearance Urine pH (5.0-9.0) Ur Specific [place] (1.005-1.030) Urine Protein (NEGATIVE) mg/dL Urine Glucose (UA) (NEGATIVE) mg/dL Urine Ketones (NEGATIVE) mg/dL Urine Occult Blood (NEGATIVE) Urine Nitrite (NEGATIVE) Urine Bilirubin (NEGATIVE) Urine Urobilinogen (0.2-1.0) E.U./dL Ur Leukocyte Esterase (NEGATIVE) Urine RBC /HPF Urine WBC /HPF Urine Bacteria (NONE TO FEW) /HPF SARS-CoV-2 RNA (GARRET) (NEGATIVE) SARS-CoV-2 Ag (Rapid) (NEGATIVE) [place] Results Last 24 Hours: Urine specimen set up for culture and sensitivity. Med Orders - Current: Current Medications Acetaminophen (Tylenol) 650 mg PO Q4H PRN PRN Reason: Pain Albuterol (Proventil Hfa) 0 gm INH Q4H PRN PRN Reason: Dyspnea Digoxin (Lanoxin) 250 mcg IVPUSH ONETIME ONE Stop: 07/04/20 18:01 Diltiazem HCl (Cardizem Cd) 120 mg PO QPM [facility] Enoxaparin Sodium (Lovenox) 40 mg SUBCUT Q24H [facility] Last Admin: 07/03/20 22:55 Dose: 40 mg Documented by: Fluticasone Propionate (Flonase) 0 gm NASBOTH DAILY [facility] Last Admin: 07/04/20 07:20 Dose: Not Given Documented by: Furosemide (Lasix) 20 mg IVPUSH BID [facility] Last Admin: 07/04/20 08:24 Dose: Not Given Documented by: Loratadine (Claritin) 10 mg PO DAILY [facility] Last Admin: 07/04/20 07:18 Dose: 10 mg Documented by: Metoprolol Succinate (Toprol Xl) 25 mg PO BID [facility] Last Admin: 07/04/20 07:18 Dose: 25 mg Documented by: Omeprazole (Omeprazole) 40 mg PO DAILY [facility] Last Admin: 07/04/20 07:18 Dose: 40 mg Documented by: Potassium Chloride (Klor-Con M20) 20 meq PO DAILY [facility] Last Admin: 07/04/20 08:24 Dose: Not Given Documented by: Sodium Chloride (Saline Flush) 10 ml FLUSH ASDIRECTED PRN PRN Reason: Keep Vein Open Last Admin: 07/04/20 09:49 Dose: 10 ml Documented by: Sodium Chloride (Saline Flush) 10 ml FLUSH Q12HR PRN PRN Reason: Keep Vein Open Temazepam (Restoril) 15 mg PO BEDTIME PRN PRN Reason: Insomnia Discontinued Medications Aspirin (Aspirin) 324 mg CHEW ONETIME ONE Stop: 07/03/20 17:33 Last Admin: 07/03/20 17:38 Dose: 324 mg Documented by: Digoxin (Lanoxin) 500 mcg IVPUSH ONETIME ONE Stop: 07/04/20 08:40 Last Admin: 07/04/20 09:45 Dose: 500 mcg Documented by: Diltiazem HCl (Diltiazem) 20 mg IVPUSH ONETIME ONE Stop: 07/03/20 17:35 Last Admin: 07/03/20 17:40 Dose: 10 mg Documented by: Diltiazem HCl (Cardizem Cd) 120 mg PO ONETIME ONE Stop: 07/03/20 17:52 Last Admin: 07/03/20 17:55 Dose: 120 mg Documented by: Famotidine (Pepcid) 40 mg IVPUSH ONETIME ONE Stop: 07/03/20 17:33 Last Admin: 07/03/20 17:51 Dose: 40 mg Documented by: Furosemide (Lasix) 40 mg IVPUSH BID [facility] Last Admin: 07/03/20 21:50 Dose: Not Given Documented by: Metoprolol Tartrate (Lopressor) 25 mg PO ONETIME ONE Stop: 07/03/20 18:37 Last Admin: 07/03/20 18:48 Dose: 25 mg Documented by: Potassium Chloride (Klor-Con M20) 20 meq PO BID [facility] Last Admin: 07/03/20 22:56 Dose: 20 meq Documented by: Ticagrelor (Brilinta) 180 mg PO ONETIME ONE Stop: 07/03/20 17:33 Last Admin: 07/03/20 17:38 Dose: 180 mg Documented by: - Exam Quality Assessment: DVT Prophylaxis (Lovenox). No: Supplemental Oxygen, Central Line/PICC, Urine Catheter, Skin Breakdown General: Alert, Oriented, Cooperative, No Acute Distress HEENT: Pupils Equal, Pupils Reactive, EOMI, Mucous Membr. Moist/[place]. No: Scleral Icterus Neck: Supple, No JVD, No Thyromegaly, +2 Carotid Pulse wo Bruit. No: Lymphadenopathy Lungs: Normal Respiratory Effort, Rales (Mild bilateral basilar ). No: Rhonchi, Rub, Stridor, Wheezing Cardiovascular: Regular Rate, No Murmurs, Irregular Rhythm. No: Gallops, Rubs GI/Abdominal Exam: Normal Bowel Sounds, Soft, Non-Tender, No Organomegaly, No Distention, No Abnormal Bruit, No Mass, Other (Obese). No: Guarding (Male) Exam: Deferred Back Exam: Normal Inspection, Full Range of Motion. No: CVA Tenderness (L), CVA Tenderness (R), Muscle Spasm Extremities: Normal Inspection, Normal Range of Motion, Non-Tender, No Pedal Edema, Normal Capillary Refill. No: Shanell's Sign Peripheral Pulses: 2+: Radial (L), Radial (R), Dorsalis Pedis (L), Dorsalis Pedis (R) Skin: Warm, Dry, Intact. No: Ecchymosis Neurological: No New Focal Deficit, Other (No clinical orthostasis) Psy/Mental Status: Alert, Normal Affect, Normal Mood. No: Agitated, Hallucinations, Withdrawal Symptoms #1 Interpretation EKG Date: 07/04/20 Time: 07:27 Rhythm: A-Fib Rate (Beats/Min): 82 [place]: Normal (Neutral with previous left cardiac axis) P-Wave: Variable QRS: Normal (0.09 seconds) ST-T: Normal QT: Normal RI/PQ Interval: Stable poor wave progression in the anterior leads with variable RI interval secondary to atrial fibrillation Comparison: Change From Previous EKG (As above since 07/03/2023) EKG Interpretation Comments: 1. No acute ischemic changes 2. Atrial fibrillation - Patient Data Lab Results Last 24 hrs: Laboratory Results - last 24 hr 07/03/20 07/03/20 07/03/20 Range/Units 17:30 17:30 17:30 WBC 12.2 H (4.0-10.2) K/uL RBC 5.58 H (4.33-5.41) M/uL Hgb 16.3 (13.1-16.8) g/dL Hct 48.8 (39.0-49.0) % MCV 87.5 (84.0-98.0) fL MCH 29.2 (28.2-33.3) pg MCHC 33.4 (31.7-36.0) g/dL RDW 13.5 (11.2-14.1) % Plt Count 286 (150-350) K/uL Neut % (Auto) 53.3 (45.0-80.0) % Lymph % (Auto) 32.3 (10.0-50.0) % [place] % (Auto) 8.7 (2.0-14.0) % Eos % (Auto) 5.3 H (0.0-5.0) % Baso % (Auto) 0.4 (0.0-2.0) % Neut # (Auto) 6.48 (1.40-7.00) K/uL Lymph # (Auto) 3.94 H (0.50-3.50) K/uL [place] # (Auto) 1.06 H (0.00-1.00) K/uL Eos # (Auto) 0.65 H (0.00-0.50) K/uL Baso # (Auto) 0.05 (0.00-0.20) K/uL PT 9.4 L (9.5-12.0) SEC INR 0.9 APTT 26.9 (24.5-32.8) SEC D-Dimer, Quantitative < 100 (0-400) ng/mL Sodium (136-145) mmol/L Potassium (3.5-5.1) mmol/L Chloride (98-107) mmol/L Carbon Dioxide (21.0-32.0) mmol/L BUN (7-18) mg/dL Creatinine (0.51-1.17) mg/dL Est Cr Clr Drug Dosing Estimated GFR (MDRD) mL/min Glucose (70-99) mg/dL Hemoglobin A1c (4.3-5.7) % Lactic Acid (0.4-2.0) mmol/L Uric Acid (2.6-7.2) mg/dL Calcium (8.5-10.1) mg/dL Magnesium (1.8-2.4) mg/dL Total Bilirubin (0.2-1.0) mg/dL AST (15-37) U/L ALT (12-78) U/L Alkaline Phosphatase (46-116) IU/L Creatine Kinase (26-308) U/L Creatine Kinase Index (0.0-2.5) % CK-MB (CK-2) (0.00-3.60) ng/mL Troponin I (0.000-0.056) ng/mL NT-Pro-B Natriuret Pep (0-125) pg/mL Total Protein (6.4-8.2) g/dL Albumin (3.4-5.0) g/dL Triglycerides (30-150) mg/dL Cholesterol (100-200) mg/dL LDL Cholesterol, Calc (0-100) mg/dL HDL Cholesterol (40-60) mg/dL TSH, Ultra Sensitive (0.358-3.740) mIU/mL Specimen Type Urine Color Urine Appearance Urine pH (5.0-9.0) Ur Specific [place] (1.005-1.030) Urine Protein (NEGATIVE) mg/dL Urine Glucose (UA) (NEGATIVE) mg/dL Urine Ketones (NEGATIVE) mg/dL Urine Occult Blood (NEGATIVE) Urine Nitrite (NEGATIVE) Urine Bilirubin (NEGATIVE) Urine Urobilinogen (0.2-1.0) E.U./dL Ur Leukocyte Esterase (NEGATIVE) Urine RBC /HPF Urine WBC /HPF Urine Bacteria (NONE TO FEW) /HPF SARS-CoV-2 RNA (GARRET) (NEGATIVE) SARS-CoV-2 Ag (Rapid) (NEGATIVE) 07/03/20 07/03/20 07/03/20 Range/Units 17:30 17:30 18:10 WBC (4.0-10.2) K/uL RBC (4.33-5.41) M/uL Hgb (13.1-16.8) g/dL Hct (39.0-49.0) % MCV (84.0-98.0) fL MCH (28.2-33.3) pg MCHC (31.7-36.0) g/dL RDW (11.2-14.1) % Plt Count (150-350) K/uL Neut % (Auto) (45.0-80.0) % Lymph % (Auto) (10.0-50.0) % [place] % (Auto) (2.0-14.0) % Eos % (Auto) (0.0-5.0) % Baso % (Auto) (0.0-2.0) % Neut # (Auto) (1.40-7.00) K/uL Lymph # (Auto) (0.50-3.50) K/uL [place] # (Auto) (0.00-1.00) K/uL Eos # (Auto) (0.00-0.50) K/uL Baso # (Auto) (0.00-0.20) K/uL PT (9.5-12.0) SEC INR APTT (24.5-32.8) SEC D-Dimer, Quantitative (0-400) ng/mL Sodium 141 (136-145) mmol/L Potassium 4.0 (3.5-5.1) mmol/L Chloride 104 (98-107) mmol/L Carbon Dioxide 27.3 (21.0-32.0) mmol/L BUN 18 (7-18) mg/dL Creatinine 0.96 (0.51-1.17) mg/dL Est Cr Clr Drug Dosing TNP Estimated GFR (MDRD) > 60 mL/min Glucose 94 (70-99) mg/dL Hemoglobin A1c (4.3-5.7) % Lactic Acid 1.2 (0.4-2.0) mmol/L Uric Acid 5.3 (2.6-7.2) mg/dL Calcium 9.3 (8.5-10.1) mg/dL Magnesium 1.8 (1.8-2.4) mg/dL Total Bilirubin 0.2 (0.2-1.0) mg/dL AST 26 (15-37) U/L ALT 53 (12-78) U/L Alkaline Phosphatase 116 (46-116) IU/L Creatine Kinase 235 (26-308) U/L Creatine Kinase Index 0.5 (0.0-2.5) % CK-MB (CK-2) 1.20 (0.00-3.60) ng/mL Troponin I 0.000 (0.000-0.056) ng/mL NT-Pro-B Natriuret Pep 478 H (0-125) pg/mL Total Protein 8.0 (6.4-8.2) g/dL Albumin 4.2 (3.4-5.0) g/dL Triglycerides (30-150) mg/dL Cholesterol (100-200) mg/dL LDL Cholesterol, Calc (0-100) mg/dL HDL Cholesterol (40-60) mg/dL TSH, Ultra Sensitive 2.785 (0.358-3.740) mIU/mL Specimen Type Urine Color Urine Appearance Urine pH (5.0-9.0) Ur Specific [place] (1.005-1.030) Urine Protein (NEGATIVE) mg/dL Urine Glucose (UA) (NEGATIVE) mg/dL Urine Ketones (NEGATIVE) mg/dL Urine Occult Blood (NEGATIVE) Urine Nitrite (NEGATIVE) Urine Bilirubin (NEGATIVE) Urine Urobilinogen (0.2-1.0) E.U./dL Ur Leukocyte Esterase (NEGATIVE) Urine RBC /HPF Urine WBC /HPF Urine Bacteria (NONE TO FEW) /HPF SARS-CoV-2 RNA (GARRET) (NEGATIVE) SARS-CoV-2 Ag (Rapid) Negative (NEGATIVE) 07/03/20 07/03/20 07/04/20 Range/Units 18:10 19:45 07:36 WBC 9.4 (4.0-10.2) K/uL RBC 5.66 H (4.33-5.41) M/uL Hgb 16.5 (13.1-16.8) g/dL Hct 49.6 H (39.0-49.0) % MCV 87.6 (84.0-98.0) fL MCH 29.2 (28.2-33.3) pg MCHC 33.3 (31.7-36.0) g/dL RDW 13.7 (11.2-14.1) % Plt Count 266 (150-350) K/uL Neut % (Auto) 43.6 L (45.0-80.0) % Lymph % (Auto) 39.1 (10.0-50.0) % [place] % (Auto) 9.7 (2.0-14.0) % Eos % (Auto) 7.1 H (0.0-5.0) % Baso % (Auto) 0.5 (0.0-2.0) % Neut # (Auto) 4.09 (1.40-7.00) K/uL Lymph # (Auto) 3.67 H (0.50-3.50) K/uL [place] # (Auto) 0.91 (0.00-1.00) K/uL Eos # (Auto) 0.67 H (0.00-0.50) K/uL Baso # (Auto) 0.05 (0.00-0.20) K/uL PT (9.5-12.0) SEC INR APTT (24.5-32.8) SEC D-Dimer, Quantitative (0-400) ng/mL Sodium (136-145) mmol/L Potassium (3.5-5.1) mmol/L Chloride (98-107) mmol/L Carbon Dioxide (21.0-32.0) mmol/L BUN (7-18) mg/dL Creatinine (0.51-1.17) mg/dL Est Cr Clr Drug Dosing Estimated GFR (MDRD) mL/min Glucose (70-99) mg/dL Hemoglobin A1c (4.3-5.7) % Lactic Acid (0.4-2.0) mmol/L Uric Acid (2.6-7.2) mg/dL Calcium (8.5-10.1) mg/dL Magnesium (1.8-2.4) mg/dL Total Bilirubin (0.2-1.0) mg/dL AST (15-37) U/L ALT (12-78) U/L Alkaline Phosphatase (46-116) IU/L Creatine Kinase (26-308) U/L Creatine Kinase Index (0.0-2.5) % CK-MB (CK-2) (0.00-3.60) ng/mL Troponin I (0.000-0.056) ng/mL NT-Pro-B Natriuret Pep (0-125) pg/mL Total Protein (6.4-8.2) g/dL Albumin (3.4-5.0) g/dL Triglycerides (30-150) mg/dL Cholesterol (100-200) mg/dL LDL Cholesterol, Calc (0-100) mg/dL HDL Cholesterol (40-60) mg/dL TSH, Ultra Sensitive (0.358-3.740) mIU/mL Specimen Type Urincc Urine Color Yellow Urine Appearance Clear Urine pH 6.5 (5.0-9.0) Ur Specific [place] 1.015 (1.005-1.030) Urine Protein Negative (NEGATIVE) mg/dL Urine Glucose (UA) Negative (NEGATIVE) mg/dL Urine Ketones Negative (NEGATIVE) mg/dL Urine Occult Blood Negative (NEGATIVE) Urine Nitrite Negative (NEGATIVE) Urine Bilirubin Negative (NEGATIVE) Urine Urobilinogen 0.2 (0.2-1.0) E.U./dL Ur Leukocyte Esterase Negative (NEGATIVE) Urine RBC 0-5 /HPF Urine WBC Not seen /HPF Urine Bacteria Not seen (NONE TO FEW) /HPF SARS-CoV-2 RNA (GARRET) Negative (NEGATIVE) SARS-CoV-2 Ag (Rapid) (NEGATIVE) 07/04/20 07/04/20 Range/Units 07:36 07:36 WBC (4.0-10.2) K/uL RBC (4.33-5.41) M/uL Hgb (13.1-16.8) g/dL Hct (39.0-49.0) % MCV (84.0-98.0) fL MCH (28.2-33.3) pg MCHC (31.7-36.0) g/dL RDW (11.2-14.1) % Plt Count (150-350) K/uL Neut % (Auto) (45.0-80.0) % Lymph % (Auto) (10.0-50.0) % [place] % (Auto) (2.0-14.0) % Eos % (Auto) (0.0-5.0) % Baso % (Auto) (0.0-2.0) % Neut # (Auto) (1.40-7.00) K/uL Lymph # (Auto) (0.50-3.50) K/uL [place] # (Auto) (0.00-1.00) K/uL Eos # (Auto) (0.00-0.50) K/uL Baso # (Auto) (0.00-0.20) K/uL PT (9.5-12.0) SEC INR APTT (24.5-32.8) SEC D-Dimer, Quantitative (0-400) ng/mL Sodium 139 (136-145) mmol/L Potassium 4.2 (3.5-5.1) mmol/L Chloride 104 (98-107) mmol/L Carbon Dioxide 28.0 (21.0-32.0) mmol/L BUN 15 (7-18) mg/dL Creatinine 0.93 (0.51-1.17) mg/dL Est Cr Clr Drug Dosing 122.58 Estimated GFR (MDRD) > 60 mL/min Glucose 103 H (70-99) mg/dL Hemoglobin A1c 5.5 (4.3-5.7) % Lactic Acid (0.4-2.0) mmol/L Uric Acid (2.6-7.2) mg/dL Calcium 8.8 (8.5-10.1) mg/dL Magnesium (1.8-2.4) mg/dL Total Bilirubin 0.7 (0.2-1.0) mg/dL AST 26 (15-37) U/L ALT 53 (12-78) U/L Alkaline Phosphatase 107 (46-116) IU/L Creatine Kinase 195 (26-308) U/L Creatine Kinase Index 0.4 (0.0-2.5) % CK-MB (CK-2) 0.70 (0.00-3.60) ng/mL Troponin I 0.000 (0.000-0.056) ng/mL NT-Pro-B Natriuret Pep 455 H (0-125) pg/mL Total Protein 7.2 (6.4-8.2) g/dL Albumin 3.5 (3.4-5.0) g/dL Triglycerides 167 H (30-150) mg/dL Cholesterol 195 (100-200) mg/dL LDL Cholesterol, Calc 125 H (0-100) mg/dL HDL Cholesterol 37 L (40-60) mg/dL TSH, Ultra Sensitive (0.358-3.740) mIU/mL Specimen Type Urine Color Urine Appearance Urine pH (5.0-9.0) Ur Specific [place] (1.005-1.030) Urine Protein (NEGATIVE) mg/dL Urine Glucose (UA) (NEGATIVE) mg/dL Urine Ketones (NEGATIVE) mg/dL Urine Occult Blood (NEGATIVE) Urine Nitrite (NEGATIVE) Urine Bilirubin (NEGATIVE) Urine Urobilinogen (0.2-1.0) E.U./dL Ur Leukocyte Esterase (NEGATIVE) Urine RBC /HPF Urine WBC /HPF Urine Bacteria (NONE TO FEW) /HPF SARS-CoV-2 RNA (GARRET) (NEGATIVE) SARS-CoV-2 Ag (Rapid) (NEGATIVE) Result Diagrams: 07/04/20 07:36 07/04/20 07:36 Sepsis Event Note - Evaluation Sepsis Screening Result: No Definite Risk - Focused Exam Vital Signs: Vital Signs Temp Pulse Pulse Resp BP BP Pulse Ox 07/04/20 09:45 83 07/04/20 09:16 36.4 C 87 16 99/64 98 07/04/20 07:27 36.5 C 88 16 107/62 95 07/04/20 07:18 88 107/62 07/04/20 04:50 36.8 C 82 18 102/73 95 - Problem List & Annotations (1) Atrial flutter with rapid ventricular response SNOMED Code(s): 5644354, 4523957 Code(s): I48.92 - UNSPECIFIED ATRIAL FLUTTER Status: Acute Priority: High Current Visit: Yes Onset Date: 07/03/20 Annotation/Comment:: Refractory atrial fibrillation despite aggressive medical therapy as below. Patient will be loaded with IV digoxin during the course of the day on 07/04, although it is not plan to discharge the patient on this medication. His potassium level was normal at time of initiation of his digoxin. Note persistent atrial fibrillat ion/flutter at time of admission, however no tachycardia with heart rate in the 70s to 80s after aggressive treatment in the emergency room as per emergency room note. No chest pain or anginal type symptoms prior to arrival with chest pain protocol not initiated in the emergency room, although the patient was given ASA and Brilinta as a preventative measure. Secondary to new onset atrial fibrillation no indication for high-dose Lovenox or anticoagulation therapy at this time, although prophylactic Lovenox was initiated. If patient remains in atrial fibrillation at time of discharge he will likely need to be started on Eliquis. Otherwise this therapy may be held until completion of further work-up as below, if he does have successful medical cardioversion to normal sinus rhythm. He is not a candidate for electrocardioversion at this time secondary to stable vital signs, etc.. Continue medication adjustments during this hospitalization with echocardiogram to be conducted in this facility on 07/10 with results to be sent to his regular provider, CHRISTIANE Smith at the [facility]. Cardiolite stress test has also been scheduled with me tentatively on 07/12, although he may have to cancel this secondary to a family conflict. Further cardiology consultation depending on his clinical course. No excessive caffeine use or OTC cold preparations recently. TSH was normal. His friend, who brought him here to the emergency room, was provided a [employer] of work excuse at that time. The patient will also need a [employer] work excuse with 50% maximum exercise restriction and strict injury no fall precautions at time of discharge. A Bob[employer] work excuse was also completed today indicating his current hospitalization.. (2) CHF (congestive heart failure) SNOMED Code(s): 62076021 Code(s): I50.9 - HEART FAILURE, UNSPECIFIED Status: Acute Priority: High Current Visit: Yes Onset Date: 07/04/20 Qualifiers: Heart failure type: unspecified Heart failure chronicity: acute Qualified Code(s): I50.9 - Heart failure, unspecified Annotation/Comment:: Mild CHF likely secondary to his atrial fibrillation. Echocardiogram scheduled as above. Blood pressures are somewhat low secondary to his medications for his refractory atrial fibrillation with consideration of MICHAEL inhibitor therapy depending on his clinical course. (3) History of sinus tachycardia SNOMED Code(s): 275324492 Code(s): Z86.79 - PERSONAL HISTORY OF OTHER DISEASES OF THE CIRCULATORY SYSTEM Status: Chronic Priority: Medium Current Visit: Yes Annotation/Comment:: Previous history of sinus tachycardia currently treated with low-dose Toprol-XL. Further medication adjustments as above. No previous cardiac work-up. (4) Asthma SNOMED Code(s): 280007938 Code(s): J45.909 - UNSPECIFIED ASTHMA, UNCOMPLICATED Status: Chronic Priority: Medium Current Visit: Yes Qualifiers: Asthma severity: mild Asthma persistence: intermittent Asthma complication type: uncomplicated Qualified Code(s): J45.20 - Mild intermittent asthma, uncomplicated Annotation/Comment:: No recent fever or bronchitic type symptoms. Stable by history. Patient did not receive an influenza booster this season. No Covid infection or immunizations to this point. (5) Obesity (BMI 30-39.9) SNOMED Code(s): 047740108, 309273379 Code(s): E66.9 - OBESITY, UNSPECIFIED Status: Chronic Priority: Medium Current Visit: Yes Annotation/Comment:: Glycosylated hemoglobin 5.5% on 07/04/2020. Additional mild dyslipidemia noted with HDL of 35 and mildly increased LDL in triglycerides on 07/04. Weight loss in moderation advisable. Dietary information to be provided at discharge. (6) Osteoarthritis SNOMED Code(s): 918098397 Code(s): M19.90 - UNSPECIFIED OSTEOARTHRITIS, UNSPECIFIED SITE Status: Chronic Priority: Medium Current Visit: Yes Qualifiers: Osteoarthritis location: multiple joints Osteoarthritis type: primary Qualified Code(s): M89.49 - Other hypertrophic osteoarthropathy, multiple sites Annotation/Comment:: Stable by history (7) Peptic reflux disease SNOMED Code(s): 133015547 Code(s): K21.9 - GASTRO-ESOPHAGEAL REFLUX DISEASE WITHOUT ESOPHAGITIS Status: Chronic Priority: Medium Current Visit: Yes Annotation/Comment:: Stable by history with high-dose IV Pepcid given as GI prophylaxis. No evidence of acute GI bleed, etc. (8) Leukocytosis SNOMED Code(s): 179050243, 126544121 Code(s): D72.829 - ELEVATED WHITE BLOOD CELL COUNT, UNSPECIFIED Status: Acute Priority: Medium Current Visit: Yes Onset Date: ~07/03/20 Qualifiers: Leukocytosis type: bandemia Qualified Code(s): D72.825 - Bandemia Annotation/Comment:: Likely secondary to stress infection on admission with no local signs of infection. Normal WBCs on 07/04.. UA was normal with culture and sensitivity pending. - Problem List Review Problem List Initiated/Reviewed/Updated: Yes - My Orders Last 24 Hours: My Active Orders 07/03/20 17:32 Sodium Chloride 0.9% [Saline Flush] 10 ml FLUSH ASDIRECTED PRN Resuscitation Status Stat 07/03/20 17:33 Cardiac Monitoring [RC] Q2HR EKG Documentation Completion [RC] ASDIRECTED Peripheral IV Care [RC] . DIRECTED Chest 1V Frontal [CR] Stat Peripheral IV Insertion Adult [OM.PC] Stat 07/03/20 19:45 CULTURE URINE [RM] Routine 07/03/20 19:56 Albuterol [Proventil HFA] 0 gm INH Q4H PRN 07/03/20 19:56 RT Post Treatment Assessment [RC] Click to Edit RT Pre-Treatment Assessment [RC] Click to Edit 07/03/20 20:05 Communication Order [RC] PER UNIT ROUTINE Height and Weight [RC] 06 Intake and Output Strict [RC] ASDIRECTED Oxygen Therapy [RC] .PRN Pulse Oximetry [RC] ASDIRECTED Up With Assistance [RC] ASDIRECTED Vital Signs [RC] Q4HR Acetaminophen [TylenoL] 650 mg PO Q4H PRN Sodium Chloride 0.9% [Saline Flush] 10 ml FLUSH Q12HR PRN Temazepam [Restoril] 15 mg PO BEDTIME PRN Antiembolic Hose [OM.PC] Routine CHF Questionnaire [COMM] Routine DVT/VTE Prophylaxis Reflex [OM.PC] Routine GM Immunization Reflex [OM.PC] Click to Edit 07/03/20 20:06 Antiembolic Devices [RC] .Routine Antiembolic Devices [RC] 08,20 Communication, Vaccine [RC] PER UNIT ROUTINE VTE/DVT Education [RC] PER UNIT ROUTINE 07/03/20 21:00 Enoxaparin [Lovenox] 40 mg SUBCUT Q24H 07/04/20 05:11 EKG Documentation Completion [RC] ASDIRECTED EKG 12 Lead [EK] Routine 07/04/20 Breakfast Heart Healthy Diet [DIET] 07/04/20 08:00 Fluticasone Propionate [Flonase] 0 gm NASBOTH DAILY Furosemide [Lasix] 20 mg IVPUSH BID Loratadine [Claritin] 10 mg PO DAILY Metoprolol Succinate [Toprol XL] 25 mg PO BID Omeprazole 40 mg PO DAILY Potassium Chloride [Klor-Con M20] 20 meq PO DAILY 07/04/20 18:00 Digoxin [Lanoxin] 250 mcg IVPUSH ONETIME ONE Diltiazem [Cardizem CD] 120 mg PO QPM - Assessment Assessment:: As above - Plan Plan:: As above. Extensive precautions were given to the patient, who is in agreement with the treatment plan. The patient's condition is stable enough for observation status and general supervision with additional day of hospitalization required for further medication adjustment as above. Zulema carney physician assumes care in the a.m..
[2020-07-04] MEDS ORDERED: Diltiazem 120 MG Cap.CD PO SCH (18:00)
[2020-07-04] MEDS ORDERED: Diltiazem 25 MG/5 ML SDV IVPUSH ONE (18:46)
[2020-07-04] MEDS: Enoxaparin 40 MG/0.4 ML Syringe SUBCUT SCH (20:30)
[2020-07-05 08:17] LABS: CHLORIDE,CL 105 mmol/L (98-107); SODIUM,NA 141 mmol/L (136-145)
[2020-07-05] MEDS: Omeprazole 20 MG Cap.CR PO SCH (08:24)
[2020-07-05] MEDS: Fluticasone Propionate Nasal Spray 16 GM Bottle NASBOTH SCH (08:24)
[2020-07-05] MEDS: Loratadine 10 MG Tab PO SCH (08:25)
[2020-07-05] MEDS: Sodium Chloride 0.9% 10 ML Syringe FLUSH PRN ×2 (08:27→13:06)
[2020-07-05] MEDS ORDERED: Diltiazem IR 60 MG Tab PO ONE (09:41)
[2020-07-05] MEDS: Furosemide 20 MG/2 ML VIAL IVPUSH SCH (09:46)
[2020-07-05] MEDS: Potassium Chloride 20 MEQ Tab.ER PO SCH (09:46)
[2020-07-05] MEDS: Metoprolol Succinate 25 MG Tab.ER PO SCH (09:46)
--- NOTE | 2020-07-05 12:24 | PCM.DCSUM1 ---
Discharge Summary - Hospital Course Brief History: Patient admitted for further evaluation and treatment of Afib with RVR - Discharge Data Discharge Date: 07/05/20 Discharge Disposition: Home, Self-Care 01 Condition: Good - Referral to Home Health Primary Care Physician: Melonie Pandey NP - Discharge Diagnosis/Problem(s) (1) Atrial flutter with rapid ventricular response SNOMED Code(s): 2593727, 0282525 ICD Code: I48.92 - UNSPECIFIED ATRIAL FLUTTER Status: Acute Priority: High Current Visit: Yes Onset Date: 07/03/20 Problem Details: Refractory atrial fibrillation despite Cardizem/increased beta golden/Digoxin. Patient discussed with from [facility]. He recommended Toprol XL 75mg daily and continuing current dose Cardizem along with cardiac echo/Eliquis. Consider cardioversion with Cardiology in one month if patient does not convert on own. Discharge home as patient has been stable. No chest pain or anginal type symptoms prior to arrival with chest pain protocol not initiated in the emergency room, although the patient was given ASA and Brilinta as a preventative measure. Prophylactic Lovenox was initiated. He is not a candidate for electrocardioversion at this time secondary to stable vital signs, etc. Echocardiogram to be conducted in this facility on 07/10 with results to be sent to his regular provider, CHRISTIANE Smith at the [facility]. Cardiolite stress test has also been scheduled with me tentatively on July 12. Further cardiology consultation depending on his clinical course. No excessive caffeine use or OTC cold preparations recently. TSH was normal. The patient will also need a Bobcat work excuse with 50% maximum exercise restriction and strict injury no fall precautions at time of discharge. (2) History of sinus tachycardia SNOMED Code(s): 210929518 ICD Code: Z86.79 - PERSONAL HISTORY OF OTHER DISEASES OF THE CIRCULATORY S YSTEM Status: Chronic Priority: Medium Current Visit: Yes Problem Details: Previous history of sinus tachycardia currently treated with low-dose Toprol-XL. Further medication adjustments as above. No previous cardiac work- up. (3) CHF (congestive heart failure) SNOMED Code(s): 71019103 ICD Code: I50.9 - HEART FAILURE, UNSPECIFIED Status: Acute Priority: High Current Visit: Yes Onset Date: 07/04/20 Problem Details: Mild CHF likely secondary to his atrial fibrillation. Echocardiogram scheduled as above. Qualifiers: Heart failure type: unspecified Heart failure chronicity: acute Qualified Code(s): I50.9 - Heart failure, unspecified (4) Leukocytosis SNOMED Code(s): 673903684, 500850782 ICD Code: D72.829 - ELEVATED WHITE BLOOD CELL COUNT, UNSPECIFIED Status: Acute Priority: Medium Current Visit: Yes Onset Date: ~07/03/20 Problem Details: Likely secondary to stress reaction on admission with no local signs of infection. Normalized. Qualifiers: Leukocytosis type: bandemia Qualified Code(s): D72.825 - Bandemia (5) Asthma SNOMED Code(s): 554885915 ICD Code: J45.909 - UNSPECIFIED ASTHMA, UNCOMPLICATED Status: Chronic Priority: Medium Current Visit: Yes Problem Details: No recent fever or bronchitic type symptoms. Stable by history. Patient did not receive an influenza booster this season. No Covid infection or immunizations to this point. Qualifiers: Asthma severity: mild Asthma persistence: intermittent Asthma complication type: uncomplicated Qualified Code(s): J45.20 - Mild intermittent asthma, uncomplicated (6) Obesity (BMI 30-39.9) SNOMED Code(s): 664033059, 254009530 ICD Code: E66.9 - OBESITY, UNSPECIFIED Status: Chronic Priority: Medium Current Visit: Yes Problem Details: Glycosylated hemoglobin 5.5% on 07/04/2020. Additional mild dyslipidemia noted with HDL of 35 and mildly increased LDL in triglycerides on 07/04. Weight loss in moderation advisable. Dietary information to be provided at discharge. (7) Osteoarthritis SNOMED Code(s): 176988498 ICD Code: M19.90 - UNSPECIFIED OSTEOARTHRITIS, UNSPECIFIED SITE Status: Chronic Priority: Medium Current Visit: Yes Problem Details: Stable by history Qualifiers: Osteoarthritis location: multiple joints Osteoarthritis type: primary Qu alified Code(s): M89.49 - Other hypertrophic osteoarthropathy, multiple sites (8) Peptic reflux disease SNOMED Code(s): 795109090 ICD Code: K21.9 - GASTRO-ESOPHAGEAL REFLUX DISEASE WITHOUT ESOPHAGITIS Status: Chronic Priority: Medium Current Visit: Yes Problem Details: Stable by history with high-dose IV Pepcid given as GI prophylaxis. No evidence of acute GI bleed, etc. - Patient Summary/Data Hospital Course: As noted above, patient monitored on telemetry and continued in A-fib. Did not convert despite medical therapy. Heart rate stabilized. Patient reports feeling well. No chest pain/SOB/palpitations. After reviewing patient with [facility] ok to discharge home with close follow up by primary provider. Patient to follow up with Cardiology, and will have cardiac echo and stress testing performed. Continue increased dose of Toprol XL and Cardizem. - Patient Instructions Diet: Anti-Inflammatory (Anti-inflammatory/lower carb diet. Aim for 100grams Carbohydrates daily) Activity: As Tolerated, No Strenuous Activities Driving: May Drive Today Showering/Bathing: May Shower Other/Special Instructions: Take Cardizem and Toprol XL to help with rate control. They may drop your blood pressure. Check your blood pressure and pulse as we discussed if you feel lightheaded. Start Magnesium and Vitamin D. Stay on those terminal manager. Get your levels checked 1-2 times a year at [facility] and adjust dose as needed. Follow up at [facility] next week to see how things are going overall. You have appointments for cardiac stress testing and cardiac echo the first week of July. You will need a referral to Cardiology at [facility] for evaluation and cardioversion if you do not convert on your own within 3-4 weeks. Strongly consider adopting an anti-inflammatory diet restricting sugars/flour/processed food/gluten. Dairy may also be a problem. This could also improve you reflux issues as well as future diabetes and cardiac risks. Follow up in ER if you have sudden worsening problems. - Discharge Plan *PRESCRIPTION DRUG MONITORING PROGRAM REVIEWED*: Not Applicable *COPY OF PRESCRIPTION DRUG MONITORING REPORT IN PATIENT KALLI: Not Applicable Prescriptions/Med Rec: Diltiazem [Cardizem CD] 120 mg PO QPM #30 cap.cd Apixaban [Eliquis] 5 mg PO BID #60 tablet Magnesium Glycinate [Mag Glycinate] 100 mg PO BID #60 tablet Metoprolol Succinate [Toprol XL] 75 mg PO DAILY #90 tab.er Cholecalciferol (Vitamin D3) [Vitamin D3] 5,000 unit PO DAILY #30 capsule Home Medications: Home Meds Albuterol [Ventolin HFA] 2 puff INH Q4H PRN 07/03/20 [History] Fluticasone Propionate [Flonase] 1 spray NASBOTH DAILY 07/03/20 [History] Loratadine [Claritin] 10 mg PO DAILY 07/03/20 [History] Metoprolol Succinate [Toprol XL] 25 mg PO DAILY 07/03/20 [History] Multivitamin [Multi-Vitamin Daily] 1 each PO DAILY 07/03/20 [History] Omeprazole Magnesium [Prilosec Otc] 40 mg PO DAILY 07/03/20 [History] Apixaban [Eliquis] 5 mg PO BID #60 tablet 07/05/20 [Rx] Cholecalciferol (Vitamin D3) [Vitamin D3] 5,000 unit PO DAILY #30 capsule 07/05/20 [Rx] Diltiazem [Cardizem CD] 120 mg PO QPM #30 cap.cd 07/05/20 [Rx] Magnesium Glycinate [Mag Glycinate] 100 mg PO BID #60 tablet 07/05/20 [Rx] Metoprolol Succinate [Toprol XL] 75 mg PO DAILY #90 tab.er 07/05/20 [Rx] Forms: ED Department Discharge Referrals: Melonie Pandey INSTRUMENT INSPECTOR [Primary Care Provider] - - Discharge Summary/Plan Comment DC Time >30 min.: Yes (Magnesium infusion) - General Info Date of Service: 07/05/20 Admission Dx/Problem (Free Text: 1. Atrial fibrillation with rapid ventricular response Subjective Update: Patient has no acute complaints Functional Status: Reports: Tolerating Diet, Ambulating, Urinating. Denies: New Symptoms - Review of Systems General: Reports: No Symptoms HEENT: Reports: No Symptoms Pulmonary: Reports: No Symptoms Cardiovascular: Reports: No Symptoms. Denies: Chest Pain, Palpitations, Dyspnea on Exertion, Orthopnea, Edema, Lightheadedness Gastrointestinal: Reports: No Symptoms Genitourinary: Reports: No Symptoms Musculoskeletal: Reports: No Symptoms Skin: Reports: No Symptoms Neurological: Reports: No Symptoms Psychiatric: Reports: No Symptoms - Patient Data Vitals - Most Recent: Last Vital Signs Temp 36.5 C 07/05/20 11:56 Pulse 87 07/05/20 11:56 Resp 16 07/05/20 11:56 BP 116/70 07/05/20 11:56 Pulse Ox 99 07/05/20 11:56 Weight - Most Recent: 126.552 kg I&O - Last 24 hours: Intake & Output 07/04/20 07/05/20 07/05/20 22:59 06:59 14:59 Intake Total 240 1080 Balance 240 1080 Lab Results - Last 24 hrs: Laboratory Results - last 24 hr 07/05/20 07/05/20 Range/Units 07:35 07:35 WBC 8.9 (4.0-10.2) K/uL RBC 5.99 H (4.33-5.41) M/uL Hgb 17.4 H (13.1-16.8) g/dL Hct 52.5 H (39.0-49.0) % MCV 87.6 (84.0-98.0) fL MCH 29.0 (28.2-33.3) pg MCHC 33.1 (31.7-36.0) g/dL RDW 13.6 (11.2-14.1) % Plt Count 288 (150-350) K/uL Neut % (Auto) 41.8 L (45.0-80.0) % Lymph % (Auto) 40.5 (10.0-50.0) % [place] % (Auto) 10.7 (2.0-14.0) % Eos % (Auto) 6.4 H (0.0-5.0) % Baso % (Auto) 0.6 (0.0-2.0) % Neut # (Auto) 3.71 (1.40-7.00) K/uL Lymph # (Auto) 3.60 H (0.50-3.50) K/uL [place] # (Auto) 0.95 (0.00-1.00) K/uL Eos # (Auto) 0.57 H (0.00-0.50) K/uL Baso # (Auto) 0.05 (0.00-0.20) K/uL Sodium 141 (136-145) mmol/L Potassium 4.1 (3.5-5.1) mmol/L Chloride 105 (98-107) mmol/L Carbon Dioxide 29.3 (21.0-32.0) mmol/L BUN 17 (7-18) mg/dL Creatinine 1.07 (0.51-1.17) mg/dL Est Cr Clr Drug Dosing 106.54 mL/min Estimated GFR (MDRD) > 60 mL/min Glucose 113 H (70-99) mg/dL Calcium 9.0 (8.5-10.1) mg/dL Magnesium 2.2 (1.8-2.4) mg/dL Creatine Kinase 225 (26-308) U/L Creatine Kinase Index 0.3 (0.0-2.5) % CK-MB (CK-2) 0.70 (0.00-3.60) ng/mL Troponin I 0.000 (0.000-0.056) ng/mL NT-Pro-B Natriuret Pep 388 H (0-125) pg/mL FARIHA Results - Last 24 hrs: Microbiology 07/03/20 19:45 Urine Culture - Preliminary Urine, Clean Catch NO GROWTH AFTER 1 DAY Med Orders - Current: Current Medications Acetaminophen (Tylenol) 650 mg PO Q4H PRN PRN Reason: Pain Last Admin: 07/04/20 23:22 Dose: 650 mg Documented by: Albuterol (Proventil Hfa) 0 gm INH Q4H PRN PRN Reason: Dyspnea Diltiazem HCl (Cardizem Cd) 120 mg PO QPM [facility] Last Admin: 07/04/20 17:25 Dose: 120 mg Documented by: Enoxaparin Sodium (Lovenox) 40 mg SUBCUT Q24H [facility] Last Admin: 07/04/20 20:30 Dose: 40 mg Documented by: Fluticasone Propionate (Flonase) 0 gm NASBOTH DAILY [facility] Last Admin: 07/05/20 08:24 Dose: 1 spray Documented by: Furosemide (Lasix) 20 mg IVPUSH BID [facility] Last Admin: 07/05/20 09:46 Dose: Not Given Documented by: Magnesium Sulfate/Dextrose 1 (gm/ Premix) 100 mls @ 100 mls/hr IV ONETIME ONE Stop: 07/05/20 12:26 Loratadine (Claritin) 10 mg PO DAILY [facility] Last Admin: 07/05/20 08:25 Dose: 10 mg Documented by: Metoprolol Succinate (Toprol Xl) 25 mg PO BID [facility] Last Admin: 07/05/20 09:46 Dose: Not Given Documented by: Omeprazole (Omeprazole) 40 mg PO DAILY [facility] Last Admin: 07/05/20 08:24 Dose: 40 mg Documented by: Potassium Chloride (Klor-Con M20) 20 meq PO DAILY [facility] Last Admin: 07/05/20 09:46 Dose: Not Given Documented by: Sodium Chloride (Saline Flush) 10 ml FLUSH ASDIRECTED PRN PRN Reason: Keep Vein Open Last Admin: 07/05/20 08:27 Dose: 10 ml Documented by: Sodium Chloride (Saline Flush) 10 ml FLUSH Q12HR PRN PRN Reason: Keep Vein Open Temazepam (Restoril) 15 mg PO BEDTIME PRN PRN Reason: Insomnia Last Admin: 07/04/20 23:22 Dose: 15 mg Documented by: Discontinued Medications Aspirin (Aspirin) 324 mg CHEW ONETIME ONE Stop: 07/03/20 17:33 Last Admin: 07/03/20 17:38 Dose: 324 mg Documented by: Digoxin (Lanoxin) 500 mcg IVPUSH ONETIME ONE Stop: 07/04/20 08:40 Last Admin: 07/04/20 09:45 Dose: 500 mcg Documented by: Digoxin (Lanoxin) 250 mcg IVPUSH ONETIME ONE Stop: 07/04/20 18:01 Last Admin: 07/04/20 17:25 Dose: 250 mcg Documented by: Diltiazem HCl (Diltiazem) 20 mg IVPUSH ONETIME ONE Stop: 07/03/20 17:35 Last Admin: 07/03/20 17:40 Dose: 10 mg Documented by: Diltiazem HCl (Cardizem Cd) 120 mg PO ONETIME ONE Stop: 07/03/20 17:52 Last Admin: 07/03/20 17:55 Dose: 120 mg Documented by: Diltiazem HCl (Diltiazem) 10 mg IVPUSH ONETIME ONE Stop: 07/04/20 18:47 Last Admin: 07/04/20 19:29 Dose: 10 mg Documented by: Diltiazem HCl (Cardizem) 30 mg PO ONETIME ONE Stop: 07/05/20 09:42 Last Admin: 07/05/20 09:53 Dose: 30 mg Documented by: Famotidine (Pepcid) 40 mg IVPUSH ONETIME ONE Stop: 07/03/20 17:33 Last Admin: 07/03/20 17:51 Dose: 40 mg Documented by: Furosemide (Lasix) 40 mg IVPUSH BID [facility] Last Admin: 07/03/20 21:50 Dose: Not Given Documented by: Metoprolol Tartrate (Lopressor) 25 mg PO ONETIME ONE Stop: 07/03/20 18:37 Last Admin: 07/03/20 18:48 Dose: 25 mg Documented by: Potassium Chloride (Klor-Con M20) 20 meq PO BID TIEN Last Admin: 07/03/20 22:56 Dose: 20 meq Documented by: Ticagrelor (Brilinta) 180 mg PO ONETIME ONE Stop: 07/03/20 17:33 Last Admin: 07/03/20 17:38 Dose: 180 mg Documented by: - Exam Quality Assessment: Reports: DVT Prophylaxis General: Reports: Alert, Oriented, Cooperative, No Acute Distress HEENT: Reports: Pupils Equal, Pupils Reactive, EOMI, Mucous Membr. Moist/[place]ck: Reports: Supple Lungs: Reports: Clear to Auscultation, Normal Respiratory Effort Cardiovascular: Reports: No Murmurs, Irregular Rhythm GI/Abdominal Exam: Soft, Non-Tender Extremities: Normal Range of Motion Skin: Reports: Warm, Dry Neurological: Reports: No New Focal Deficit Psy/Mental Status: Reports: Alert, Normal Affect, Normal Mood #1 Interpretation EKG Date: 07/05/20 Time: 07:27 Rhythm: A-Fib Rate (Beats/Min): 65 [place]: Normal P-Wave: Absent QRS: Normal ST-T: Normal QT: Normal
== END 2020-07-05 15:45 | disposition home or self-care (01) ==
LOC: LL.ED 17:20 → LL.MS 18:42
PROVIDERS: ADMIT Family Medicine; ATTEND Family Medicine
DX: I48.91 Unspecified atrial fibrillation (principal); I48.92 Unspecified atrial flutter; I50.9 Heart failure, unspecified; D72.829 Elevated white blood cell count, unspecified; J45.909 Unspecified asthma, uncomplicated; M19.90 Unspecified osteoarthritis, unspecified site; I11.0 Hypertensive heart disease with heart failure; I25.2 Old myocardial infarction; F17.210 Nicotine dependence, cigarettes, uncomplicated; K21.9 Gastro-esophageal reflux disease without esophagitis; Z20.822 Contact with and (suspected) exposure to COVID-19; E66.9 Obesity, unspecified; Z68.38 Body mass index [BMI] 38.0-38.9, adult; Z79.899 Other long term (current) drug therapy; Z82.49 Family history of ischemic heart disease and other diseases of the circulatory system
CPT/HCPCS: 36415; 71045; 71046; 80048; 80053; 80061; 81001; 82550; 82553; 83036; 83605; 83735; 83880; 84443; 84484; 84550; 85025; 85379; 85610; 85730; 87086; 87426; 93005; 93010; 96365; 96372; 96374; 96375; 96376; 99217; 99220; 99225; 99285-25; A9270-GY; G0378; J1160; J1650; J3475; J3490; U0002